=== PATIENT | female | born 1965 | race Caucasian/White ===

== ENCOUNTER 2016-07-14 00:57 | Inpatient (IN) | payer OTHER ==
[2016-07-14] VITALS (11 sets, daily range): BP systolic 120–143; BP diastolic 71–84; PULSE 60–70; RESP 18–19; TEMP 98.2; Ht 154.9 cm; Wt 77.0 kg
[~2016-07-14] VITALS: Ht 154.9 cm; Wt 77.0 kg
--- NOTE | 2016-07-14 02:27 | ERA ---
ER Documentation Chief Complaint Date/Time DATE: 07/14/16 TIME: 02:26 Chief Complaint Abdominal pain HPI The patient is a 50-year-old female, presenting to the ER because of diffuse abdominal pain that began about 11 PM today. She has similar symptoms previously, the pain is 8/10, associated with vomiting. She denies fever, chills, neck pain, chest pain, dyspnea, dysuria, diarrhea. She does not smoke or drink Past medical history: Hypertension Past surgical history: ROS All systems reviewed and are negative except as per history of present illness. Physical Exam Vitals Vital Signs Date Time Temp Pulse Resp B/P Pulse Ox O2 Delivery O2 Flow Rate FiO2 07/14/16 05:00 98.2 64 20 143/91 98 Room Air 07/14/16 04:00 63 18 129/73 97 Room Air 07/14/16 02:48 98.0 67 20 157/93 99 Room Air 07/14/16 01:32 98.2 75 20 171/93 99 Physical Exam Const: No acute distress. Head: Atraumatic. Eyes: Normal Conjunctiva. ENT: Normal External Ears, Nose and Mouth. Neck: Full range of motion. No meningismus. Resp: Clear to auscultation bilaterally. Cardio: Regular rate and rhythm, no murmurs. Abd: Soft, non distended, normal bowel sounds, diffuse and vague abdominal tenderness, no rigidity, rebound, CVA tenderness Skin: No petechiae or rashes. Back: No midline or flank tenderness. Ext: No cyanosis, or edema. Neur: Awake and alert. No focal deficit Psych: Normal Mood and Affect. Result Diagram: 07/14/16 0240 07/14/16 0240 Results 24 hrs Laboratory Tests Test 07/14/16 02:40 07/14/16 02:45 Alanine Aminotransferase (ALT/SGPT) 18IU/L Albumin 4.3g/dl Albumin/Globulin Ratio 1.16 Alkaline Phosphatase 61IU/L Anion Gap 17 Aspartate Amino Transf (AST/SGOT) 20IU/L Basophils # 0.110^3/ul Basophils % 0.7% Blood Urea Nitrogen 13mg/dl Calcium Level 9.5mg/dl Carbon Dioxide Level 31mmol/L Chloride Level 100mmol/L Creatinine 0.69mg/dl Direct Bilirubin 0.00mg/dl Eosinophils # 0.910^3/ul Eosinophils % 9.3% Globulin 3.70g/dl Glucose Level 112mg/dl Hematocrit 39.9% Hemoglobin 13.6g/dl Indirect Bilirubin 0.3mg/dl Lipase 78U/L Lymphocytes # 2.510^3/ul Lymphocytes % 24.7% Mean Corpuscular Hemoglobin 30.6pg Mean Corpuscular Hemoglobin Concent 34.1g/dl Mean Corpuscular Volume 89.7fl Mean Platelet Volume 10.5fl Monocytes # 0.710^3/ul Monocytes % 7.3% Neutrophils # 5.810^3/ul Neutrophils % 57.7% Nucleated Red Blood Cells # 0.010^3/ul Nucleated Red Blood Cells % 0.0/100WBC Platelet Count 87315^3/UL Potassium Level 2.9mmol/L Red Blood Count 4.4510^6/ul Red Cell Distribution Width 12.5% Sodium Level 145mmol/L Total Bilirubin 0.3mg/dl Total Protein 8.0g/dl White Blood Count 10.010^3/ul Bedside Urine Blood 2+ Bedside Urine Glucose (UA) Negative Bedside Urine Ketones (LAB) Negative Bedside Urine Leukocyte Esterase (L Negative Bedside Urine Nitrite (LAB) Negative Bedside Urine Protein (LAB) Negative Bedside Urine pH (LAB) 6.5 Current Medications Medications (Trade) Dose Ordered Sig/Linda Route PRN Reason Start Time Stop Time Status Last Admin Dose Admin Morphine Sulfate (morphine) 4 mg ONCE STAT IV 07/14/16 02:30 07/14/16 02:31 DC Ondansetron HCl 4 mg 4 mg ONCE STAT IV 07/14/16 02:30 07/14/16 02:31 DC 07/14/16 02:57 Potassium Chloride (KCl 40 MEQ/250 ML NS) 250 ml @ 62.5 mls/hr ONCE ONCE IVPB 07/14/16 05:30 07/14/16 09:29 07/14/16 05:47 Procedures/MDM [place] [address] Radiology Main Line: [phone] DIAGNOSTIC IMAGING REPORT Patient: TRUDI LOUIS : 1965 Age: 50 Sex: F MR #: [id number] DOS: 07/14/16 0230 Ordering MD: LATONIA CRAWFORD MD Location: E/R Room/Bed: PROCEDURE: CT ABDOMEN/PELVIS WITHOUT CONTRAST CLINICAL INDICATION: 50-year-old female with abdominal pain. TECHNIQUE: The study was performed utilizing a [employer] VCT 64-slice CT scanner. Direct axial sections were obtained through the abdomen and pelvis without the use of intravenous contrast material. Sagittal and coronal reformations were obtained. One or more the following dose reduction techniques were utilized: automated exposure control, adjustment of the mA and/or kV according to patient's size or use of iterative reconstruction technique. The images were reviewed on a PACS workstation. CTD/vol = 16.0 mGy; Total Exam DLP = 953.1 mGy-cm. COMPARISON: None. FINDINGS: There is minimal bibasilar subsegmental atelectasis. There is no evidence for significant pleural effusion. The liver has a normal size and contour without focal areas of abnormal density. No intrahepatic nor extrahepatic biliary ductal dilatation is seen. The gallbladder contains prominent cholesterol stones with diffuse gallbladder wall thickening measuring up to 10 mm but without pericholecystic inflammation or fluid. The pancreas is without areas of abnormal attenuation. The spleen is identified and has a normal size without abnormal density. The adrenal glands are unremarkable. There is a right upper pole renal cyst measuring approximately 1.3 x 1.3 x 1.4 cm. No hydroureteronephrosis nor nephroureterolithiasis is evident. The urinary bladder contains urine. There is mild retained stool within the ascending and transverse colon without obstruction. Multiple small diverticula seen within the sigmoid colon without surrounding inflammatory changes. The appendix is visualized and is without abnormal thickening or surrounding inflammatory reaction. The uterus is not visualized consistent with prior hysterectomy. There is a right ovarian cyst measuring approximately 3.4 x 3.6 x 2.7 cm. There is no significant free fluid. Small phleboliths are seen within the pelvis. The aortoiliac vessels are without aneurysmal dilatation. The osseous structures are intact. IMPRESSION: 1. Cholelithiasis with markedly thickened gallbladder wall. 2. Right upper pole renal cyst. 3. Mild retained stool without obstruction. 4. Sigmoid diverticulosis. 5. No CT evidence for appendicitis. 6. Status post hysterectomy. 7. Right renal cyst. .Tru Khan MD, Date Time Electronically viewed and signed by .Tru Khan MD, on 07/14/2016 05:01 .M/ CC: LATONIA CRAWFORD MD MEDICAL MAKING DECISION: The patient is a 50-year-old female, presenting with acute symptomatic biliary colic, acute hypokalemia. She was treated with morphine 4 mg IV for pain, Zofran 4 mg IV for nausea, potassium chloride 40 mEq iv with good response. The differential diagnoses considered include but are not limited to cholelithiasis, cholecystitis, cystitis, pancreatitis, hepatitis , gastritis, peptic ulcer disease, gastric ulcer, appendicitis, diverticulitis, cholangitis, choledocholithiasis, partial small bowel obstruction. Consultation: I discussed the patient with the on-call general surgeon Dr. Alston at 5:20 AM, who was made aware of the lab, the treatment, the patient condition. He accepted the consult Departure Diagnosis: Primary Impression: Biliary colic Additional Impression: Hypokalemia Condition: Stable Comments I discussed the findings with the patient. I discussed the patient with the on- call hospitalist Dr. Goldstein who was made aware of the lab, the treatment, the patient condition. The patient is admitted to [facility] at 5:25 AM LATONIA CRAWFORD MD Jul 14, 2016 02:27
[2016-07-14] MEDS ORDERED: ONDANSETRON 4 MG INJ IV STA (02:30)
[2016-07-14] MEDS ORDERED: morphine 4 MG/ML VIAL IV STA (02:30)
[2016-07-14 02:47] LABS: URINE BLOOD (Dip) POC 2+ (NEGATIVE)
[2016-07-14 03:03] LABS: ADD SCAN DIFF NO
[2016-07-14 03:07] LABS: BASOPHIL # 0.1 10^3/ul (0.0-0.1); BASOPHILS % 0.7 % (0.0-2.0); EOSINOPHILS # 0.9 10^3/ul (0.0-0.5); EOSINOPHILS % 9.3 % (0.0-7.0); HEMATOCRIT 39.9 % (37.0-47.0); HEMOGLOBIN 13.6 g/dl (12.0-16.0); LYMPHOCYTES # 2.5 10^3/ul (0.8-2.9); LYMPHOCYTES % 24.7 % (15.0-51.0); MEAN CORPUSCULAR HEMOGLOBIN 30.6 pg (29.0-33.0); MEAN CORPUSCULAR HGB CONC 34.1 g/dl (32.0-37.0); MEAN CORPUSCULAR VOLUME 89.7 fl (82.0-101.0); MEAN PLATELET VOLUME 10.5 fl (7.4-10.4); MONOCYTE # 0.7 10^3/ul (0.3-0.9); MONOCYTES % 7.3 % (0.0-11.0); NEUTROPHIL # 5.8 10^3/ul (1.6-7.5); NEUTROPHILS % 57.7 % (39.0-77.0); PLATELET COUNT 310 10^3/UL (140-415); RED BLOOD COUNT 4.45 10^6/ul (4.20-5.40); RED CELL DISTRIBUTION WIDTH 12.5 % (11.5-14.5)
[2016-07-14 03:15] LABS: ALBUMIN 4.3 g/dl (3.3-4.9)
[2016-07-14 03:17] LABS: CREATININE 0.69 mg/dl (0.44-1.00)
[2016-07-14 03:18] LABS: ALBUMIN/GLOBULIN RATIO 1.16; BILIRUBIN,INDIRECT 0.3 mg/dl (0-1.1); BILIRUBIN,TOTAL 0.3 mg/dl (0.2-1.3)
[2016-07-14 03:19] LABS: CALCIUM 9.5 mg/dl (8.4-10.2)
[2016-07-14 03:24] LABS: POTASSIUM 2.9 mmol/L (3.5-5.1)
--- NOTE | 2016-07-14 05:01 | RADRPT ---
PROCEDURE: CT ABDOMEN/PELVIS WITHOUT CONTRAST CLINICAL INDICATION: 50-year-old female with abdominal pain. TECHNIQUE: The study was performed utilizing a [employer] VCT 64-slice CT scanner. Direct axia l sections were obtained through the abdomen and pelvis without the use of intravenous contrast mate rial. Sagittal and coronal reformations were obtained. One or more the following dose reduction tech niques were utilized: automated exposure control, adjustment of the mA and/or kV according to patien t's size or use of iterative reconstruction technique. The images were reviewed on a PACS workstati on. CTD/vol = 16.0 mGy; Total Exam DLP = 953.1 mGy-cm. COMPARISON: None. FINDINGS: There is minimal bibasilar subsegmental atelectasis. There is no evidence for significant pleural e ffusion. The liver has a normal size and contour without focal areas of abnormal density. No intrah epatic nor extrahepatic biliary ductal dilatation is seen. The gallbladder contains prominent choles terol stones with diffuse gallbladder wall thickening measuring up to 10 mm but without pericholecys tic inflammation or fluid. The pancreas is without areas of abnormal attenuation. The spleen is id entified and has a normal size without abnormal density. The adrenal glands are unremarkable. There is a right upper pole renal cyst measuring approximately 1.3 x 1.3 x 1.4 cm. No hydroureteronephrosi s nor nephroureterolithiasis is evident. The urinary bladder contains urine. There is mild retained stool within the ascending and transverse colon without obstruction. Multiple small diverticula see n within the sigmoid colon without surrounding inflammatory changes. The appendix is visualized and is without abnormal thickening or surrounding inflammatory reaction. The uterus is not visualize d consistent with prior hysterectomy. There is a right ovarian cyst measuring approximately 3.4 x 3 .6 x 2.7 cm. There is no significant free fluid. Small phleboliths are seen within the pelvis. The aortoiliac vessels are without aneurysmal dilatation. The osseous structures are intact. IMPRESSION: 1. Cholelithiasis with markedly thickened gallbladder wall. 2. Right upper pole renal cyst. 3. Mild retained stool without obstruction. 4. Sigmoid diverticulosis. 5. No CT evidence for appendicitis. 6. Status post hysterectomy. 7. Right renal cyst. .Tru Khan MD, MD Date Time Electronically viewed and signed by .Tru Khan MD, MD on 07/14/2016 05:01 .M/
[2016-07-14] MEDS ORDERED: POTASSIUM CHLORIDE 250 ML IVPB ONE ×2 (05:30→09:30)
[2016-07-14] MEDS ORDERED: ACETAMINOPHEN 325 MG TAB PO PRN (06:30)
[2016-07-14] MEDS ORDERED: NA PHOSPHATE/BIPHOS 133 ML ENEMA PR PRN (06:30)
[2016-07-14] MEDS ORDERED: NACL 0.9% 3 ML SYG IV SCH (06:30)
[2016-07-14] MEDS ORDERED: ALBUTEROL/IPRATROPIUM (NEB) 3 ML AMP HHN PRN (06:30)
[2016-07-14] MEDS ORDERED: morphine 2 MG INJ IV PRN (06:30)
[2016-07-14] MEDS ORDERED: LORAZEPAM 2 MG INJ IV PRN (06:30)
[2016-07-14] MEDS ORDERED: hydrALAzine 20 MG INJ IV PRN (06:30)
[2016-07-14] MEDS ORDERED: NITROGLYCERIN (SL) 0.4 MG TAB SL PRN (06:30)
[2016-07-14] MEDS ORDERED: ONDANSETRON 4 MG INJ IV PRN (06:30)
[2016-07-14] MEDS ORDERED: DOCUSATE SODIUM 100 MG CAP PO PRN (06:30)
[2016-07-14] MEDS ORDERED: HYDROCODONE/APAP (5/325) TAB PO PRN (06:30)
[2016-07-14] MEDS ORDERED: MAGNESIUM HYDROXIDE 30ML CUP PO PRN (06:30)
--- NOTE | 2016-07-14 07:43 | HP ---
DATE OF ADMISSION: 07/14/2016 CHIEF COMPLAINT: Abdominal pain. HISTORY OF PRESENT ILLNESS: A 50-year-old female with a past medical history of hypertension, who p resents with abdominal pain that began 24 hours ago, described as an 8/10 in intensity. She had tabby e vomiting symptoms, nonbilious, nonbloody. She did not take any medicines to help relieve the symp toms at home. She denied any fevers or chills. No chest pain, no shortness of breath, no dysuria, no hematuria. No upper or lower GI bleeding, no diarrhea or constipation. She came in and she had imaging studies performed, CT abdomen and pelvis that did show signs of cholelithiasis with a marked ly thickened gallbladder wall and sigmoid diverticulosis. The general surgeon was called to come ev aluate the patient in the ER. PAST MEDICAL HISTORY: As stated above. ALLERGIES: Unknown: MEDICATIONS AT HOME: None. PAST SURGICAL HISTORY: in the past. SOCIAL HISTORY: Negative for smoking, drinking, or IV drug abuse. FAMILY HISTORY: Noncontributory. PHYSICAL EXAMINATION: VITAL SIGNS: Today T-max 98.2, pulse 63 to 75, respirations 18 to 20, blood pressure is to 129 to 1 71 systolic over 73 to 93 diastolic, saturating at 98% on room air. GENERAL: The patient is lying in bed, answering questions appropriately, in no acute distress. HEENT: Pupils are equal, round, and reactive to light. Extraocular muscles are intact. NECK: Supple. No thyromegaly. LUNGS: Clear to auscultation bilaterally. CARDIOVASCULAR: S1, S2 heard. No rubs or gallops. ABDOMEN: Soft, nondistended, normal bowel sounds, but mild tenderness to palpation in the epigastri c area. No rebound or guarding. MUSCULOSKELETAL: No lower extremity edema bilaterally. NEUROLOGIC: No focal deficits. LABORATORY: CBC is normal. Comprehensive metabolic panel shows sodium 145, potassium 2.9, chloride 100, CO2 31, BUN 13, creatinine 0.69. Glucose 112, but the LFTs are normal. Lipase is normal. UA shows negative nitrites, negative leukocyte esterase. ASSESSMENT AND PLAN: A 50-year-old female coming in with abdominal pain and signs of cholecystitis. 1. Abdominal pain secondary cholecystitis. Will admit the patient to the telemetry floor. Will ge t a neurosurgery consult, keep the patient n.p.o., give her IV fluids, antiemetic medicines, and pa in control medications. Check TSH, A1c and lipid panel. The patient would most likely benefit from a cholecystectomy. Will discuss with the general surgery team. 2. Hypokalemia. Patient to get potassium in the ER. Will give her another 40 mEq of KCl and monit or BMP in the morning. Monitor for any signs of arrhythmia. 3. Gastrointestinal prophylaxis. PPI. 4. Deep venous thrombosis prophylaxis. Heparin subcutaneous. Dictated By: LISA LOPEZ/LEVI Conf#: [id number] DID#: [id number]
[2016-07-14 09:24] LABS: INR 0.89; PARTIAL THROMBOPLASTIN TIME 24.4 Sec (25.0-35.0); PT RATIO 0.9
[2016-07-14] MEDS: HEPARIN 5,000 UNIT/0.5 ML SYG SC SCH ×2 (10:43→20:43)
[2016-07-14] MEDS: SOD CHLORIDE 0.9% 1,000 ML IV SCH ×2 (11:59→16:15)
[2016-07-14] MEDS ORDERED: INFLUENZA VIRUS VACCINE 0.5 ML SYG IM* ONE (12:30)
[2016-07-15] VITALS (8 sets, daily range): BP systolic 112–130; BP diastolic 57–77; PULSE 63–83; RESP 16–20
[2016-07-15] MEDS: SOD CHLORIDE 0.9% 1,000 ML IV SCH ×3 (03:12→17:03)
--- NOTE | 2016-07-15 03:42 | RADRPT ---
PROCEDURE: Hepatobiliary scan. CLINICAL INDICATION: Abdominal pain with cholelithiasis. Concern for biliary obstruction. TECHNIQUE: Nuclear medicine hepatobiliary scan COMPARISON: CT abdomen and pelvis dated today, about 6-1/2 hours ago. FINDINGS: Multiple serial images were obtained after administration of scintigraphic material and demonstrate timely identification of activity within the hepatocytes,, central biliary structures, common bile d uct and small bowel. There is no evident biliary obstruction. The gallbladder is not initially visualized over 90 minutes, and is also not seen on 95-minute or 4- hour delayed images. Findings are compatible with acute cholecystitis in the appropriate clinical s etting. IMPRESSION: 1. No evident biliary obstruction, with spillage of scintigraphic material into the small bowel. 2. Nonvisualization of the gallbladder over 4 hours is compatible with acute cholecystitis the appr opriate clinical setting. RPTAT: [facility] Physician Phyllis Date Time Electronically viewed and signed by Physician Phyllis on 07/15/2016 03:42 RS/
[2016-07-15] MEDS: PANTOPRAZOLE 40 MG INJ IV SCH (05:58)
[2016-07-15 07:57] LABS: THYROID STIMULATING HORMONE 0.939 MIU/L (0.465-4.680)
[2016-07-15 08:36] LABS: ADD SCAN DIFF NO
[2016-07-15 08:43] LABS: BASOPHIL # 0.1 10^3/ul (0.0-0.1); BASOPHILS % 0.8 % (0.0-2.0); EOSINOPHILS # 0.6 10^3/ul (0.0-0.5); EOSINOPHILS % 7.2 % (0.0-7.0); HEMATOCRIT 37.4 % (37.0-47.0); HEMOGLOBIN 12.4 g/dl (12.0-16.0); LYMPHOCYTES # 2.9 10^3/ul (0.8-2.9); LYMPHOCYTES % 33.9 % (15.0-51.0); MEAN CORPUSCULAR HEMOGLOBIN 30.8 pg (29.0-33.0); MEAN CORPUSCULAR HGB CONC 33.2 g/dl (32.0-37.0); MEAN PLATELET VOLUME 10.9 fl (7.4-10.4); MONOCYTE # 0.6 10^3/ul (0.3-0.9); MONOCYTES % 7.2 % (0.0-11.0); NEUTROPHIL # 4.3 10^3/ul (1.6-7.5); NEUTROPHILS % 50.6 % (39.0-77.0); PLATELET COUNT 294 10^3/UL (140-415); RED BLOOD COUNT 4.02 10^6/ul (4.20-5.40); RED CELL DISTRIBUTION WIDTH 12.8 % (11.5-14.5); WHITE BLOOD COUNT 8.6 10^3/ul (4.8-10.8)
[2016-07-15 08:47] LABS: POTASSIUM 3.8 mmol/L (3.5-5.1)
[2016-07-15 08:49] LABS: CREATININE 0.5 mg/dl (0.44-1.00)
[2016-07-15 08:50] LABS: CALCIUM 8.5 mg/dl (8.4-10.2); MAGNESIUM 2.2 mg/dl (1.7-2.5); PHOSPHORUS 2.5 mg/dl (2.5-4.9)
[2016-07-15] MEDS: HEPARIN 5,000 UNIT/0.5 ML SYG SC SCH ×2 (09:17→21:49)
[2016-07-15 11:14] LABS: CHOL/HDL RATIO 3.3 RATIO
--- NOTE | 2016-07-15 15:59 | PN ---
Date/Time of Note Date/Time of Note DATE: 07/15/16 TIME: 15:56 Assessment/Plan VTE Prophylaxis VTE Prophylaxis Intervention: heparin Lines/Catheters IV Catheter Type (from Nrs): Peripheral IV Urinary Cath still in place: No Assessment/Plan Chief Complaint/Hosp Course 1. Abdominal pain secondary cholecystitis Follow-up with surgery recommendations 2. Hypokalemia- Repleted Prophylaxis: Heparin Problems: Subjective 24 Hr Interval Summary Gastrointestinal: pain Exam/Review of Systems Vital Signs Vitals Vital Signs Date Time Temp Pulse Resp B/P Pulse Ox O2 Delivery O2 Flow Rate FiO2 07/15/16 11:15 97.7 75 20 130/77 98 Room Air Intake and Output 07/14/16 07/14/16 07/15/16 15:00 23:00 07:00 Intake Total 1000 ml Balance 1000 ml Exam Constitutional: alert, oriented Respiratory: clear to auscultation Cardiovascular: regular rate and rhythm Gastrointestinal: soft, No distended Musculoskeletal: nl extremities to inspection Results Result Diagram: 07/15/16 0640 07/15/16 0640 Results 24 hrs Laboratory Tests Test 07/15/16 06:40 Anion Gap 15 Basophils # 0.1 Basophils % 0.8 Blood Urea Nitrogen 13 Calcium Level 8.5 Carbon Dioxide Level 23 Chloride Level 110 # Cholesterol Level 138 Cholesterol/HDL Ratio 3.3 Creatinine 0.50 Eosinophils # 0.6 H Eosinophils % 7.2 H Glucose Level 82 HDL Cholesterol 41 Hematocrit 37.4 Hemoglobin 12.4 Hemoglobin A1c 5.9 LDL Cholesterol, Calculated 64 Lymphocytes # 2.9 Lymphocytes % 33.9 Magnesium Level 2.2 Mean Corpuscular Hemoglobin 30.8 Mean Corpuscular Hemoglobin Concent 33.2 Mean Corpuscular Volume 93.0 Mean Platelet Volume 10.9 H Monocytes # 0.6 Monocytes % 7.2 Neutrophils # 4.3 Neutrophils % 50.6 Nucleated Red Blood Cells # 0.0 Nucleated Red Blood Cells % 0.0 Phosphorus Level 2.5 Platelet Count 294 Potassium Level 3.8 Red Blood Count 4.02 L Red Cell Distribution Width 12.8 Sodium Level 144 Thyroid Stimulating Hormone (TSH) 0.939 Triglycerides Level 166 H White Blood Count 8.6 Medications Medications Current Medications Ondansetron HCl (Zofran Inj) 4 mg Q6H PRN IV NAUSEA AND/OR VOMITING; Start at 06:30 Acetaminophen (Tylenol Tab) 650 mg Q6H PRN PO PAIN LEVEL 1-3 OR FEVER; Start at 06:30 Acetaminophen/ Hydrocodone Bitart ([place] (5/325)) 1 tab Q6H PRN PO MODERATE PAIN LEVEL 4-6; Start 07/14/16 at 06:30 Morphine Sulfate (morphine) 2 mg Q4H PRN IV SEVERE PAIN LEVEL 7-10; Start 07/14 at 06:30 Docusate Sodium (Colace) 100 mg Q12H PRN PO CONSTIPATION; Start 07/14/16 at 06: 30 Magnesium Hydroxide (Milk Of Mag) 30 ml DAILY PRN PO CONSTIPATION; Start at 06:30 Sodium Biphosphate/ Sodium Phosphate (Fleet Enema) 133 ml DAILY PRN ND CONSTIPATION; Start 07/14/16 at 06:30 Pantoprazole (Protonix Iv) 40 mg DAILY@06 IV Last administered on 07/15/16 05: 58; Admin Dose 40 MG; Start 07/15/16 at 06:00 Heparin Sodium (Porcine) (Heparin (5000 Units/0.5 ml)) 5,000 unit Q12 SC Last administered on 07/15/16 09:17; Admin Dose 5,000 UNIT; Start 07/14/16 at 09:00 Lorazepam 0.5 mg 0.5 mg Q6H PRN IV ANXIETY; Start 07/14/16 at 06:30 Sodium Chloride (NS) 1,000 ml @ 100 mls/hr Q10H IV Last administered on 03:12; Admin Dose 100 MLS/HR; Start 07/14/16 at 06:15 Hydralazine HCl (Apresoline) 10 mg Q6H PRN IV ELEVATED BLOOD PRESSURE; Start at 06:30 Nitroglycerin (Nitroglycerin (Sl Tab) 0.4 Mg) 1 tab Q5M PRN SL ANGINA; Start at 06:30 SADIA GREGORY Jul 15, 2016 15:58
--- NOTE | 2016-07-15 19:34 | PN ---
Date/Time of Note Date/Time of Note DATE: 07/15/16 TIME: 19:30 Assessment/Plan Lines/Catheters IV Catheter Type (from [facility]): Peripheral IV Roca in Place (from [facility]): No Assessment/Plan Chief Complaint/Hosp Course 1. Abdominal pain with abnormal CT findings suggestive of cholecystitis. However she has normal CBC and LFTs. No fevers. HIDA scan is positive -Antibiotics -Supportive measures -Discussed with patient antibiotic and surgical options. At this point she prefers to try diet and if she tolerates that she prefers to go home and follow- up as outpatient 2. BMI 32 -Highly encourage diet optimization -Encourage exercise 3. Hypertension -Diet and medication optimization -Weight loss encouraged 4. History of gastritis -PPI -Diet and lifestyle optimization encouraged 5. Diverticulosis -Diet and lifestyle optimization encouraged Thank you Problems: Subjective 24 Hr Interval Summary HIDA positive. No nausea vomiting. She feels significantly better. No fevers or chills. No chest pain or shortness of breath. No visual neurologic changes. No dysuria. No abnormal discharge. No blood per mouth or rectum. No rashes. She prefers to eat and go home and follow-up as outpatient at this point. Exam/Review of Systems Vital Signs Vitals Vital Signs Date Time Temp Pulse Resp B/P Pulse Ox O2 Delivery O2 Flow Rate FiO2 07/15/16 11:15 97.7 75 20 130/77 98 Room Air Intake and Output 07/14/16 07/14/16 07/15/16 15:00 23:00 07:00 Intake Total 1000 ml Balance 1000 ml Exam Constitutional: alert, obese, oriented, No distress Psych: nl mood/affect, No anxiety Head: atraumatic, normocephalic Eyes: EOMI, PERRL, nl conjunctiva, No icteric ENMT: mucosa pink and moist, nl external ears & nose, nl lips & teeth Neck: non-tender, supple, No jvd Respiratory: normal air movement, No congested cough, No labored breathing Cardiovascular: regular rate and rhythm, No edema Gastrointestinal: soft, tender (Very minimal and epigastric without Haney), No distended, No rebound or guarding Musculoskeletal: nl extremities to inspection, nl gait and stance, No joint tenderness Extremities: normal pulses, No calf tenderness, No cyanosis Neurological: nl mental status, nl speech, nl strength Skin: nl turgor, No diaphoresis, No rash or lesions Lymph: nl lymph nodes Results Result Diagram: 07/15/16 0640 07/15/16 0640 NEETU CHEN MD Jul 15, 2016 19:34
--- NOTE | 2016-07-15 20:50 | CONS ---
DATE OF ADMISSION: 07/14/2016 DATE OF CONSULTATION: 07/14/2016 TYPE OF CONSULTATION: Surgical. REFERRING PHYSICIAN: Dontrell Turner MD CHIEF COMPLAINT: 1. Abdominal pain. 2. Abnormal gallbladder with possible cholecystitis. 3. BMI 32. HISTORY OF PRESENT ILLNESS: Jayshree Dominguez is a 50-year-old female with multiple comorbidities who presents with diffuse abdominal pain associated with nausea and vomiting but no fevers, chills, chest pain, shortness of breath, visual or neurologic changes. No dysuria. No blood per mouth or r ectum. No change in bowel habits. No cough, seizure, rash, trauma or sick contacts. Pain was diff use and 8/10 sharp. She has had previous episodes that resolved. In the emergency room, her workup shows normal vital signs and CBC, however electrolytes abnormal wi th hypernatremia and hypokalemia. LFTs are normal. CT scan of the abdomen and pelvis identifies ch olelithiasis with markedly thickened gallbladder wall and diverticulosis. The patient is admitted, and surgical consult is obtained for further evaluation and treatment. PAST MEDICAL HISTORY: 1. Right renal cyst. 2. Sigmoid diverticulosis. 3. Cholelithiasis. 4. Gallbladder wall thickening with possible cholecystitis that is chronic. 5. Hypertension. 6. BMI 32. 7. Hypernatremia. 8. Hypokalemia. PAST SURGICAL HISTORY: . MEDICATIONS: As per MAR. ALLERGIES: NONE NOTED. SOCIAL HISTORY: Denies alcohol, drugs or tobacco. FAMILY HISTORY: Noncontributory. REVIEW OF SYSTEMS: A 12-point review of systems negative unless addressed in HPI. PHYSICAL EXAMINATION: VITAL SIGNS: Temperature is 98.2, pulse 60, blood pressure 129/71. GENERAL: No acute distress. Pleasant and obese. HEENT: Pupils equal, reactive. No scleral icterus. Mucous membranes are moist. NECK: Supple. No JVD. PULMONARY: Normal respiratory effort. No wheezing. CARDIAC: S1, S2 present and regular. ABDOMEN: Soft. Minimal tenderness in epigastric, however negative Haney's. No rebound, guarding or rigidity. EXTREMITIES: No edema. VASCULAR: Capillary refill less than 2 seconds. NEUROLOGIC: Alert, oriented. Moves all 4 extremities grossly. PSYCHIATRIC: Normal affect. LABORATORY AND RADIOGRAPHIC: As per chart and HPI. ASSESSMENT AND PLAN: Jayshree Dominguez is a 50-year-old female with multiple comorbidities. 1. Abdominal pain with abnormal CT findings suggestive of cholecystitis. However, she has normal C BC and LFTs. No fevers. Antibiotics. Supportive measures. Discussed with patient antibiotic and surgical options. 2. Body mass index 32. Highly encouraged diet optimization. Highly encouraged exercise. 3. Hypertension. Diet and medication optimization. Weight loss encouraged. 4. History of gastritis. PPI. Diet and lifestyle and optimization encouraged. 5. Diverticulosis. Diet and lifestyle and optimization encouraged. Thank you very much for consulting me in this patient's care. Dictated By: NEETU HILL/LEVI Conf#: [id number] DID#: [id number]
[2016-07-16] MEDS: SOD CHLORIDE 0.9% 1,000 ML IV SCH ×2 (03:15→08:15)
[2016-07-16] MEDS: PANTOPRAZOLE 40 MG INJ IV SCH (06:02)
[2016-07-16 08:50] LABS: ADD SCAN DIFF NO
[2016-07-16 09:01] LABS: BASOPHIL # 0.1 10^3/ul (0.0-0.1); BASOPHILS % 0.6 % (0.0-2.0); EOSINOPHILS # 0.6 10^3/ul (0.0-0.5); EOSINOPHILS % 6.4 % (0.0-7.0); HEMATOCRIT 36.1 % (37.0-47.0); HEMOGLOBIN 12.2 g/dl (12.0-16.0); LYMPHOCYTES # 2.5 10^3/ul (0.8-2.9); LYMPHOCYTES % 25.8 % (15.0-51.0); MEAN CORPUSCULAR HEMOGLOBIN 30.6 pg (29.0-33.0); MEAN CORPUSCULAR HGB CONC 33.8 g/dl (32.0-37.0); MEAN CORPUSCULAR VOLUME 90.5 fl (82.0-101.0); MEAN PLATELET VOLUME 10.5 fl (7.4-10.4); MONOCYTE # 0.7 10^3/ul (0.3-0.9); MONOCYTES % 7.6 % (0.0-11.0); NEUTROPHIL # 5.7 10^3/ul (1.6-7.5); NEUTROPHILS % 59.2 % (39.0-77.0); PLATELET COUNT 284 10^3/UL (140-415); RED BLOOD COUNT 3.99 10^6/ul (4.20-5.40); RED CELL DISTRIBUTION WIDTH 12.5 % (11.5-14.5); WHITE BLOOD COUNT 9.6 10^3/ul (4.8-10.8)
[2016-07-16 09:12] LABS: POTASSIUM 3.5 mmol/L (3.5-5.1)
[2016-07-16 09:14] LABS: CREATININE 0.47 mg/dl (0.44-1.00)
[2016-07-16 09:15] VITALS: BP 137/83; PULSE 82; RESP 20
[2016-07-16 09:15] LABS: CALCIUM 8.2 mg/dl (8.4-10.2)
[2016-07-16] MEDS: HEPARIN 5,000 UNIT/0.5 ML SYG SC SCH (09:51)
--- NOTE | 2016-07-16 12:46 | PDOCDIS ---
Discharge Instructions CONDITION Patient Condition: Good HOME CARE INSTRUCTIONS: Diet Instructions: Reduced Calorie ACTIVITY: Activity Restrictions: No Restrictions FOLLOW UP/APPOINTMENTS Appointments F/U WITH YOUR PCP IN 1-2 WEEKS, F/U WITH A SURGEON IN 1-2 WEEKS SADIA GREGORY Jul 16, 2016 12:46
--- NOTE | 2016-07-16 17:31 | PN ---
Date/Time of Note Date/Time of Note DATE: 07/16/16 TIME: 17:29 Assessment/Plan Lines/Catheters IV Catheter Type (from [facility]): Saline Lock Roca in Place (from [facility]): No Assessment/Plan Chief Complaint/Hosp Course 1. Abdominal pain with abnormal CT findings suggestive of cholecystitis. However she has normal CBC and LFTs. No fevers. HIDA scan is positive -Antibiotics -Supportive measures -Discussed with patient & family antibiotic and surgical options. At this point she prefers to try diet and if she tolerates that she prefers to go home and follow-up as outpatient 2. BMI 32 -Highly encourage diet optimization -Encourage exercise 3. Hypertension -Diet and medication optimization -Weight loss encouraged 4. History of gastritis -PPI -Diet and lifestyle optimization encouraged 5. Diverticulosis -Diet and lifestyle optimization encouraged Thank you Late entry Problems: Subjective 24 Hr Interval Summary HIDA positive. No nausea vomiting. She feels significantly better. No fevers or chills. No chest pain or shortness of breath. No visual neurologic changes. No dysuria. No abnormal discharge. No blood per mouth or rectum. No rashes. She prefers to eat and go home and follow-up as outpatient at this point. Exam/Review of Systems Vital Signs Vitals Vital Signs Date Time Temp Pulse Resp B/P Pulse Ox O2 Delivery O2 Flow Rate FiO2 07/16/16 09:15 98.0 82 20 137/83 97 07/15/16 11:15 Room Air Intake and Output 07/15/16 07/15/16 07/16/16 15:00 23:00 07:00 Intake Total 600 ml 1600 ml Balance 600 ml 1600 ml Exam Free Text/Dictation Constitutional: alert, obese, oriented, No distress Psych: nl mood/affect, No anxiety Head: atraumatic, normocephalic Eyes: EOMI, PERRL, nl conjunctiva, No icteric ENMT: mucosa pink and moist, nl external ears & nose, nl lips & teeth Neck: non-tender, supple, No jvd Respiratory: normal air movement, No congested cough, No labored breathing Cardiovascular: regular rate and rhythm, No edema Gastrointestinal: soft, tender (Very minimal and epigastric without Haney), No distended, No rebound or guarding Musculoskeletal: nl extremities to inspection, nl gait and stance, No joint tenderness Extremities: normal pulses, No calf tenderness, No cyanosis Neurological: nl mental status, nl speech, nl strength Skin: nl turgor, No diaphoresis, No rash or lesions Lymph: nl lymph nodes Results Result Diagram: 07/16/16 0804 07/16/16 0804 NEETU CHEN MD Jul 16, 2016 17:30
--- NOTE | 2016-07-17 07:21 | DS ---
DATE OF ADMISSION: 07/14/2016 DATE OF DISCHARGE: 07/16/2016 DISCHARGE DIAGNOSES: 1. Abdominal pain secondary to cholecystitis, now stable. The patient to have outpatient cholecyst ectomy. 2. Hypokalemia, repleted. HOSPITAL COURSE: The patient is a 50-year-old female with a past medical history of hypertension. The patient presents with abdominal pain. She was found to have cholecystitis. She had no evidence of sepsis. She did have a HIDA that was positive. The patient's abdominal pain did improve, and s he did not want to miles to any surgery. She was seen by surgery, and it was decided that the patien t can have an outpatient cholecystectomy. On day of discharge, the patient's vitals, labs, physical exam were stable. She had no acute complaints. All questions were answered. CONDITION ON DISCHARGE: Stable. DISPOSITION: To home. MEDICATIONS: The patient has no reported home medications. No new medications were prescribed. FOLLOWUP: The patient is to follow up with PCP in 1 to [address] Alston of surgery as i ndicated. Greater than 30 minutes was spent coordinating discharge of patient. Dictated By: SADIA GREGORY MD BS/NTS Conf#: [id number] DID#: [id number]
== END 2016-07-16 13:30 | disposition home or self-care (01) | DRG 446 ==
LOC: E/R 00:57 → TEL 05:23 → MS2 07-15 11:05
PROVIDERS: ADMIT Hospitalist; ATTEND Hospitalist
DX: K80.00 Calculus of gallbladder with acute cholecystitis without obstruction (principal); I10 Essential (primary) hypertension; E87.6 Hypokalemia; K57.30 Diverticulosis of large intestine without perforation or abscess without bleeding; K29.70 Gastritis, unspecified, without bleeding
CPT/HCPCS: 36415; 74176; 78226; 80048; 80053; 80061; 81003; 83036; 83690; 83735; 84100; 84439; 84443; 85025; 85610; 85730; 90686; 96374; 96375; A9537; C9113; J1644; J2270; J2405; J3480; J7030

== ENCOUNTER 2016-07-21 11:26 | Outpatient (CLI) | payer OTHER ==
[~2016-07-21] VITALS: Ht 154.9 cm; Wt 75.5 kg
[2016-07-21 11:24] VITALS: BP 133/79; PULSE 79; RESP 16; Ht 154.9 cm; Wt 75.5 kg
--- NOTE | 2016-07-21 11:30 | PN ---
Date/Time of Note Date/Time of Note DATE: 07/21/16 TIME: 11:30 Outpatient Progress Note Chief Complaint Abdominal pain/hypertension/gallstones/diverticulosis HPI Abdominal pain/patient was recently hospitalized with abdominal pain, no nausea or vomiting, no abdominal pain, Hypertension/no headache or dizziness or lightheadedness, no local focal weakness, Gallstone/patient has abdominal pain, patient was recently hospitalized, patient has gallstone, no nausea vomiting or right upper quadrant pain or jaundice, Diverticulosis/patient has diverticulosis, no fever or chill, no mucus or blood in the stool, Review of Systems Const: [No Fever, no chills, no Wt. loss, no Fatigue, normal appetite, no diaphoresis.] Eyes: [No pain, no discharge, no redness, no visual change, no foreign body.] ENT: [No pain, no bleeding, no congestion, no sore throat, no dysphagia, no discharge or rhinitis.] Lymph: [No adenopathy, no tender nodes, no lymphedema.] Resp: [No SOB, no cough, no sputum, no wheezing, no chest pain.] CV: [No chest pain, no palpitaions, no MEEKS, no PND, no edema.] GI: [Normal appetite, no pain, no nausea, no vomiting, no diarrhea, no blood, no constipation.] : [No frequency, no urgency, no dysuria, no hematuria, no flank pain, no discharge, no bleeding.] Musc: [No bone/joint pain, no back pain, no neck pain, no knee pain, no restricted ROM.] Skin: [No rash, no skin lesions, no erythema, no laceration, no bruising, no pruritus.] Neuro: [No VENCES, no dizziness, no syncope, no seizure, no focal-weakness.] Endo: [No polyuria, no polydypsia, no dry-skin, no temp-intolerance.] Psych: [No hallucinations, no depression, no anxiety, no suicidal ideation.] Ext: [No edema, no pain, no ulcer, no weakness.] Physical Exam Vital Signs Date Time Temp Pulse Resp B/P Pulse Ox O2 Delivery O2 Flow Rate FiO2 07/21/16 11:24 98.9 79 16 133/79 96 Room Air General Appearance: A [50] year-old [female] [who appears well-developed, well- nourished, in no acute distress.] HEENT: [Head normocephalic, atraumatic. Pupils equal, round, reactive to light and accommodate. Sclerae are no jaundice. Nasal turbinates pink without erythema or nasal discharge. Mucous membranes pink and moist without lesions. Oropharynx clear without any exudate or discharge.] NECK: [Supple. Trachea midline, No thyromegaly, No cervical lymphadenopathy, No mass, No carotid bruits, No JVD, Carotid pulses 2+ bilaterally.] PULMONARY: [Clear to auscultaion bilaterally, No retractions, Chest expansion symmetric bilaterally, no rales, no ronchi, no dulness on percussion.] CARDIAC: [Normal SI and S2, Regular rate and rythm, no murmur, gallop, or rub.] GASTROINTESTINAL: [Abdomen is soft, non-tender, Non Rigid, No distention, Positive bowel sounds x4 quadrants, Liver normal.] SKIN: [Warm, dry, no rash, no bruise, no echmosis.] EXTREMITIES: [Bilateral lower extremities normal, no edema, no phlabitus, pulse palpable, no contracture.] MUSCULOSKELETAL: [Spine Normal, Non-tender, Normal range of motion, No swelling , no deformity, no clubbing, or cyanosis, the patient has no edema to bilateral lower extremities, dorsalis pedis pulses palpable bilaterally.] NEUROLOGIC: [The patient is awake, alert, oriented, responding to yes/no questions appropriately, moving all extremities, cranial nerve intact, normal strenght, normal power, normal coordination, normal gait.] Allergies Coded Allergies: No Known Allergy (Unverified , 07/14/16) PMH Hypertension/gallstone/diverticulosis/ section Social Hx No smoking or drinking no drugs, Family Hx Noncontributory Assessment/Plan Impression Abdominal pain resolved Hypertension Gallstone Diverticulosis Plan Continue all medication, patient has all medication, patient has no abdominal pain, no fever or chill, patient has been educated about disease, Patient advised to follow with the primary care physician, patient also explained that if patient has repeated pain, may need to surgery, patient may need workup in few days, discussed with the patient in detail, patient was explained in Korean, Patient will be followed by primary care if patient needs surgical consultation explained that we will get authorization for surgery, Medications Home Meds Reported Medications Hydrochlorothiazide* (Hydrochlorothiazide*) 25 Mg Tab, 25 MG PO DAILY, #30 TAB 07/21/16 DYLON HAWTHORNE MD Jul 21, 2016 11:30
[2016-07-21] MEDS ORDERED: HYD25 PO (11:37)
== END 2016-07-21 16:26 | disposition home or self-care (01) ==
LOC: DCC 11:26
PROVIDERS: ATTEND Internal Medicine
DX: R10.9 Unspecified abdominal pain (principal); I10 Essential (primary) hypertension; K80.80 Other cholelithiasis without obstruction; K57.90 Diverticulosis of intestine, part unspecified, without perforation or abscess without bleeding